=== PATIENT | male | born 1995 | race Caucasian/White ===

== ENCOUNTER 2025-03-29 01:55 | Emergency (ER) | payer OTHER ==
[~2025-03-29] VITALS: Ht 175.3 cm; Wt 88.4 kg
[2025-03-29] MEDS ORDERED: METH4PAK PO (03:28)
[2025-03-29] MEDS ORDERED: TIZA-142 PO (03:28)
[2025-03-29] MEDS ORDERED: FAMO20TA10 PO (03:28)
--- NOTE | 2025-03-29 03:29 | ED.PDOC ---
HPI Allergic reaction HPI Comments Pt presents with cc of possible allergic reaction. Pt has one red itchy spot on each hhis right and left hand. Pt states he had a similar reaction prior and at that time was diagnosed with an allergic reaction. Pt states he believes he is allergic to naproxen which he took earlier today prior to developement of the symptoms. Pt also complaining of middle and lower back pain d/t degenerative disc disease. Chief Complaint: Allergic Reaction Time Seen by MD: 02:08 Reviewed Notes: Nurses Notes, Medications, Allergies Allergies: Coded Allergies: Gabapentin (Verified Allergy, Unknown, 03/29/25) Naproxen (Verified Allergy, Unknown, 03/29/25) Home Meds Active Scripts Tizanidine Hydrochloride (Tizanidine Hcl) 4 Mg Tab, 4 MG PO BID PRN for 7 Days, #14 TAB Prov:ERASMO SOLOMON [facility] 03/29/25 Famotidine (PEPCID TABLET) 20 Mg Tb, 1 TAB PO BID PRN for 7 Days, #14 TAB Prov:ERASMO SOLOMON [facility] 03/29/25 Methylprednisolone (Medrol Dosepak) 4 Mg Mikhail, 4 MG PO UD for 6 Days, #21 TAB UAD Prov:ERASMO SOLOMON [facility] 03/29/25 Information Source: Patient Mode of Arrival: Ambulatory Past Medical History PAST MEDICAL HISTORY: Denies Surgical History: Denies all surgeries Family History Family History: Unknown Social History Smoker: Non-Smoker Alcohol: Denies ETOH Use Drugs: Denies Drug Use Constitutional: denies: chills, diaphoresis, fatigue, fever, malaise, sweats, weakness, others EENTM: denies: blurred vision, double vision, ear bleeding, ear discharge, ear drainage, ear pain, ear ringing, eye pain, eye redness, hearing loss, mouth pain, mouth swelling, nasal discharge, nose bleeding, nose congestion, nose pain, photophobia, tearing, throat pain, throat swelling, voice changes, others Respiratory: denies: cough, hemoptysis, orthopnea, SOB at rest, shortness of breath, SOB with excertion, stridor, wheezing, others Cardiovascular: denies: chest pain, dizzy spells, diaphoresis, Dyspnea on exertion, edema, irregular heart beat, left arm pain, lightheadedness, palpitations, PND, syncope, others Gastrointestinal: denies: abdomen distended, abdominal pain, blood streaked bowels, constipated, diarrhea, dysphagia, difficulty swallowing, hematemesis, melena, nausea, poor appetite, poor fluid intake, rectal bleeding, rectal pain, vomiting, others Genitourinary: denies: burning, dysuria, flank pain, frequency, hematuria, incontinence, penile discharge, penile sore, pain, testicle pain, testicle swelling, urgency, others Neurological: denies: dizziness, fainting, headache, left sided numbness, left sided weakness, numbness, paresthesia, pre-existing deficit, right sided numbness, right sided weakness, seizure, speech problems, tingling, tremors, weakness, others Musculoskeletal: reports: back pain; denies: gout, joint pain, joint swelling, muscle pain, muscle stiffness, neck pain, others Integumetry: reports: rash Allergic/Immunocompromised: denies: Difficulty Healing, Frequent Infections, Hives, Itching, others Hematologic/Lymphatic: denies: anemia, blood clots, easy bleeding, easy bruising, swollen glands, others Endocrine: denies: excessive hunger, excessive sweating, excessive thirst, excessive urination, flushing, intolerance to cold, intolerance to heat, unexplained weight gain, unexplained weight loss, others Psychiatric: denies: anxiety, bipolar disorder, depression, hopeless, panic disorder, schizophrenia, sleepless, suicidal, others Physical Exam General Appearance: No Apparent Distress, Normal HEENT: Normal ENT Inspection, Pharynx Normal, TMs Normal Neck: Full Range of Motion, Non-Tender Respiratory: Lungs Clear, No Respiratory Distress, Normal Breath Sounds Cardiovascular: No Edema, No JVD, No Murmur, No Gallop, Normal Peripheral Pulses, Regular Rate/Rhythm Breast Exam: Deferred Gastrointestinal: No Organomegaly, Non Tender, No Pulsatile Mass, Normal Bowel Sounds, Soft Genitalia: Deferred Pelvic: Deferred Rectal: Deferred Extremities: Normal range of motion, No pedal edema Musculoskeletal : Location: Bilateral Extremity Location: Back (TENDERNESS PALPATED OVER BILATERAL LOWER BACK MUSCULATURE NO NOTED CREPITUS OR STEP-OFFS ALONG L1-L5 STRENGTH SENSORY MOTION INTACT NEGATIVE BILATERAL STRAIGHT LEG RAISE POSITIVE PEDAL PULSES) Apperance: Normal Neurologic: Alert, No Motor Deficits, Normal Affect, Normal Mood, No Sensory Deficits Cerebellar Function: Normal Reflexes: NOT DONE Skin: Dry, Normal Color, Rash (NOTED ERYTHEMIC INDURATED WELTS ON BILATERAL HANDS EXCORIATIONS OR DRAINAGE), Warm Lymphatic: No Adenopathy Was a procedure done? Was a procedure done?: No Differential diagnosis (all) Differential Diagnosis: Anaphylaxis, Angioedema, Bronchospasm, Contact Dermatitis, Drug Reaction, Hypotension, Shock, Urticaria X-Ray, Labs, Meds, VS Vital Signs Date Time Temp Pulse Resp B/P (MAP) Pulse Ox O2 Delivery O2 Flow Rate FiO2 03/29/25 01:57 98.1 130 16 123/75 98 98.1 Current Medications Medications (Trade) Dose Ordered Sig/Tono Route Start Time Stop Time Status Last Admin Dexamethasone Sodium Phosphate (Decadron Injection) 10 mg ONCE ONCE IM 03/29/25 03:30 03/29/25 03:31 DC 03/29/25 03:40 Famotidine (Pepcid Tablet) 40 mg ONCE ONCE PO 03/29/25 03:30 03/29/25 03:31 DC 03/29/25 03:39 Acetaminophen/ Hydrocodone Bitart (Graton 5/325MG Tab) 1 tab ONCE ONCE PO 03/29/25 03:30 03/29/25 03:31 DC 03/29/25 03:40 X-Ray, Labs, Meds, VS Comment Patient given Decadron 10 mg IM and Graton 5 mg p.o.. Reports improvement in pain and function requesting discharge at this time. Script trial of Medrol Dosepak and muscle relaxer advised take medication as prescribed side effects discussed. Advised to alternate between ice and heat. Advised to rest. Ad vised to follow up with PCP in 2-3 days as necessary consider further treatments such as MRI, physical therapy, or pain managment referral if symptoms persist. Advised on ER return precautions for increasing pain, numbness, weakness, loss of bowel bladder control or saddle anesthesia. Patient indicates understanding agrees with discharge plan of care. Time of 1ST Reevaluation: 02:08 Reevaluation 1ST: Unchanged Time of 2ND Reevaluation: 03:50 Reevaluation 2ND: Improved Patient Education/Counseling: Diagnosis, Treatment, Need For Follow Up Family Education/Counseling: Diagnosis, Treatment SEPSIS Sepsis Screen Date sepsis recognized/suspect: Mar 29, 2025 Time Sepsis recognized/suspect: 0200 Recent Procedure: No On Antibiotic Therapy: No Respiratory Rate >20: No Heart Rate >90: Yes Temp<36 C (96.8 F) or >38.3 C: No SBP <90 or MAP <65 mmHG: No New Acute Mental Status Change: No Is the patient on CPAP, BIPAP,: No Vital Signs Date Time Temp Pulse Resp B/P (MAP) Pulse Ox O2 Delivery O2 Flow Rate FiO2 03/29/25 01:57 98.1 130 16 123/75 98 98.1 Medications Medications Dose Ordered Sig/Tono Route Start Time Stop Time Status Last Admin Dose Admin Acetaminophen/ Hydrocodone Bitart 1 tab ONCE ONCE PO 03/29/25 03:30 03/29/25 03:31 DC 03/29/25 03:40 Dexamethasone Sodium Phosphate 10 mg ONCE ONCE IM 03/29/25 03:30 03/29/25 03:31 DC 03/29/25 03:40 Famotidine 40 mg ONCE ONCE PO 03/29/25 03:30 03/29/25 03:31 DC 03/29/25 03:39 Departure 1 Departure Time of Disposition: 03:50 Impression: Primary Impression: Allergic reaction Qualified Codes: T78.40XA - Allergy, unspecified, initial encounter Additional Impression: Low back pain Qualified Codes: M54.50 - Low back pain, unspecified; G89.29 - Other chronic pain Disposition: 01 HOME / SELF CARE / HOMELESS Condition: Stable e-Prescriptions Tizanidine Hydrochloride (Tizanidine Hcl) 4 Mg Tab 4 MG PO BID PRN for 7 Days, #14 TAB Prov: ERASMO SOLOMONP 03/29/25 Famotidine (PEPCID TABLET) 20 Mg Tb 1 TAB PO BID PRN for 7 Days, #14 TAB Prov: ERASMO SOLOMONP 03/29/25 Methylprednisolone (Medrol Dosepak) 4 Mg Mikhail 4 MG PO UD for 6 Days, #21 TAB UAD Prov: ERASMO SOLOMONP 03/29/25 Discharged With: Spouse Critical Care Note Critical Care Time?: No Stability Stability form required: ERASMO Davis Mar 29, 2025 03:29
[2025-03-29] MEDS: FAMOTIDINE 20 MG TAB PO ONE (03:39)
[2025-03-29 03:40] VITALS: TEMP 98.1
[2025-03-29] MEDS: HYDROcodone-ACET 5/325MG TAB PO ONE ×3 (03:40→04:51)
[2025-03-29 04:30] VITALS: BP 107/71; PULSE 107; RESP 18; O2SAT 95
== END 2025-03-29 04:56 | disposition home or self-care (01) ==
LOC: ER 01:59
DX: L53.9 Erythematous condition, unspecified (principal); T78.40XA Allergy, unspecified, initial encounter; M54.50 Low back pain, unspecified; Z88.6 Allergy status to analgesic agent; X58.XXXA Exposure to other specified factors, initial encounter
CPT/HCPCS: 96372; 99284; J1100